=== PATIENT | female | born 1985 | race Caucasian/White ===

== ENCOUNTER 2020-04-01 18:58 | Emergency (ER) | payer SELFPAY ==
[2020-04-01 22:35] LABS: Urine Blood NEGATIVE (NEG); Urine Glucose NEGATIVE (NEG); Urine Protein NEGATIVE (NEG); Urine pH 6.5 (5.0-7.0)
[2020-04-01 22:39] LABS: Absolute Lymphocytes (CBC) 2.3 K/uL (0.7-4.9); Basophils % 0.6 % (0-1.3); Hematocrit 39.1 % (36.0-45.0); Lymphocytes % 25.9 % (15.3-44.8); MPV 8.4 fL (7.6-11.3); RBC Red Blood Cell Count 4.45 M/uL (3.86-4.86)
[2020-04-02 00:56] LABS: Albumin 4.2 g/dL (3.4-5.0); Bilirubin Direct 0.1 mg/dL (0-0.2); Bilirubin Total 0.6 mg/dL (0.2-1.0); Potassium 3.6 mmol/L (3.5-5.1); Protein, Total 8.1 g/dL (6.4-8.2)
--- NOTE | 2020-04-02 01:15 | ER ---
Nurse's Notes [facility] Name: Darcy Oreilly Age: 34 yrs Sex: Female : 1985 Arrival Date: 04/01/2020 Time: 19:01 Bed 7 Private MD: Diagnosis: Other abdominal pain Presentation: 04/01 19:24 Chief complaint: Patient states: Epigastic back pain that radiates to the right side aj1 that started yesterday. Denies N/V/D. Denies fever. Describes the pain as pressure. Coronavirus screen: Client denies travel out of the [place] in the last 14 days. At this time, the client does not indicate any symptoms associated with coronavirus-19. Ebola Screen: Patient denies travel to an Ebola-affected area in the 21 days before illness onset. Initial Sepsis Screen: Does the patient meet any 2 criteria? No. Patient's initial sepsis screen is negative. Does the patient have a suspected source of infection? Yes: Acute abdominal pain. Risk Assessment: Do you want to hurt yourself or someone else? Patient reports no desire to harm self or others. Onset of symptoms was March 31, 2020. 19:24 Method Of Arrival: Ambulatory aj1 19:24 Acuity: RADHA 3 aj1 Triage Assessment: 19:31 General: Appears in no apparent distress. uncomfortable, Behavior is calm, cooperative, aj1 appropriate for age. Pain: Complains of pain in back and epigastric area Pain does not radiate. Pain radiates to anterior aspect of right lateral abdomen Pain currently is 3 out of 10 on a pain scale. Quality of pain is described as pressure. Neuro: Level of Consciousness is awake, alert, obeys commands, Oriented to person, place, time, situation. Cardiovascular: Patient's skin is warm and dry. Respiratory: Airway is patent Respiratory effort is even, unlabored, Respiratory pattern is regular, symmetrical. GI: Reports lower abdominal pain, Patient currently denies diarrhea, nausea, vomiting. Derm: Skin is pink, warm \T\ dry. normal. 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 - Social history:: Smoking status: Patient/guardian denies using tobacco. Screenin:36 Abuse screen: Denies threats or abuse. Denies injuries from another. Nutritional rv screening: No deficits noted. Tuberculosis screening: No symptoms or risk factors identified. Fall Risk None identified. Assessment: 22:35 General: Appears comfortable, Behavior is calm, cooperative. Pain: Complains of pain in rv right upper quadrant. Neuro: Level of Consciousness is awake, alert, obeys commands, Oriented to person, place, time, situation. Cardiovascular: Patient's skin is warm and dry. Respiratory: Airway is patent Respiratory effort is even, unlabored. Derm: Skin is intact. 22:36 GI: Bowel sounds present X 4 quads. Abd is soft and non tender X 4 quads. rv 04/02 00:03 Reassessment: Patient and/or family updated on plan of care and expected duration. Pain ea level reassessed. Patient is alert, oriented x 3, equal unlabored respirations, skin warm/dry/pink. 01:33 Reassessment: Patient and/or family updated on plan of care and expected duration. Pain ea level reassessed. Patient is alert, oriented x 3, equal unlabored respirations, skin warm/dry/pink. Discharge instruction given to patient, verbalized the understanding of instruction. Pt left ED ambulatory tolerating well. Vital Signs: 04/01 19:24 BP 134 / 90; Pulse 83; Resp 18; Temp 98.1; Pulse Ox 100% on R/A; Weight 104.33 kg (R); aj1 Height 5 ft. 8 in. (172.72 cm) (R); Pain 3/10; 23:37 BP 97 / 61; Pulse 70; Resp 18; Pulse Ox 100% ; ea 04/02 00:04 BP 103 / 66; Pulse 73; Resp 18; Pulse Ox 97% ; ea 04/01 19:24 Body Mass Index 34.97 (104.33 kg, 172.72 cm) aj1 ED Course: 04/01 19:01 Patient arrived in ED. ag5 19:30 Triage completed. aj1 19:31 Arm band placed on Patient placed in waiting room, Patient notified of wait time. aj1 22:15 Blake Varela PA is PHCP. [facility] 22:15 Emeka Linares MD is Attending Physician. [facility] 22:20 Sandeep Jamison, RN is Primary Nurse. rv 22:35 Initial lab(s) drawn, by me, sent to lab. Inserted saline lock: 20 gauge in right rv antecubital area, using aseptic technique. Blood collected. 22:36 Patient has correct armband on for positive identification. Pulse ox on. NIBP on. rv 22:36 No provider procedures requiring assistance completed. rv 04/02 01:14 Federico Stephenson MD is Referral Physician. jmm 01:31 IV discontinued, intact, bleeding controlled, No redness/swelling at site. Pressure ea dressing applied. 12:22 CT Abd/Pelvis - IV Contrast Only In Process Unspecified. EDMS Administered Medications: No medications were administered Outcome: 01:15 Discharge ordered by MD. jmm 01:31 Condition: stable ea 01:31 Discharge instructions given to patient, Instructed on discharge instructions, follow up and referral plans. medication usage, Demonstrated understanding of instructions, follow-up care, medications, Prescriptions given X 2. 01:33 Discharged to home ambulatory. ea 01:34 Patient left the ED. ea Signatures: Dispatcher [employer] EDMS Kenzie Kunz, RN RN ajBlake Muhammad PA PA jmm Antunez, Elena, Sandeep Vazquez RN, ea, RN Rochelle Berman ag5
--- NOTE | 2020-04-02 01:15 | EDPHYS ---
Physician Documentation [facility] Name: Darcy Oreilly Age: 34 yrs Sex: Female : 1985 Arrival Date: 04/01/2020 Time: 19:01 Bed 7 Private MD: ED Physician Emeka Linares HPI: 04/01 22:27 This 34 yrs old Female presents to ER via Ambulatory with complaints of jmm Abdominal Pain, Rib Pain. 22:27 The patient presents with abdominal pain. Onset: The symptoms/episode began/occurred jmm gradually, today. The symptoms radiate to Associated signs and symptoms: Pertinent negatives: nausea and vomiting, diarrhea, dysuria. The symptoms are described as achy. This is a 34 year old female with no chronic medical conditions that presents to the ED with complaints of right sided abdominal pain. Denies fever. vomiting. Pain is not exacerbated after eating. . 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 - Social history:: Smoking status: Patient/guardian denies using tobacco. ROS: 22:27 Constitutional: Negative for fever, chills, and weight loss, Cardiovascular: Negative jmm for chest pain, palpitations, and edema, Respiratory: Negative for shortness of breath, cough, wheezing, and pleuritic chest pain. 22:27 Abdomen/GI: Positive for abdominal pain. 22:27 All other systems are negative. Exam: 22:27 Constitutional: This is a well developed, well nourished patient who is awake, alert, jmm and in no acute distress. Head/Face: atraumatic. Eyes: EOMI, no conjunctival erythema appreciated ENT: Moist Mucus Membranes Neck: Trachea midline, Supple Chest/axilla: Normal chest wall appearance and motion. Cardiovascular: Regular rate and rhythm. No edema appreciated Respiratory: Normal respirations, no respiratory distress appreciated 22:27 Back: Normal ROM Skin: General appearance color normal MS/ Extremity: Moves all extremities, no obvious deformities appreciated, no edema noted to the lower extremities Neuro: Awake and alert, normal gait Psych: Behavior is normal, Mood is normal, Patient is cooperative and pleasant 22:27 Abdomen/GI: Inspection: abdomen appears normal, Bowel sounds: normal, Palpation: soft, mild abdominal tenderness, in the right upper quadrant. Vital Signs: 19:24 BP 134 / 90; Pulse 83; Resp 18; Temp 98.1; Pulse Ox 100% on R/A; Weight 104.33 kg (R); aj1 Height 5 ft. 8 in. (172.72 cm) (R); Pain 3/10; 23:37 BP 97 / 61; Pulse 70; Resp 18; Pulse Ox 100% ; ea 04/02 00:04 BP 103 / 66; Pulse 73; Resp 18; Pulse Ox 97% ; ea 04/01 19:24 Body Mass Index 34.97 (104.33 kg, 172.72 cm) aj1 MDM: 04/01 22:22 Patient medically screened. [facility] 04/02 01:12 Data reviewed: vital signs, nurses notes. Counseling: I had a detailed discussion with robert the patient and/or guardian regarding: the historical points, exam findings, and any diagnostic results supporting the discharge/admit diagnosis, lab results, radiology results, the need for outpatient follow up, to return to the emergency department if symptoms worsen or persist or if there are any questions or concerns that arise at home. ED course: Patient is alert and non toxic in appearance in the ED. Patient is advised to follow up with GI for further evaluation. patient is otherwise given strict return precautions. Patient understood and agrees with the plan of care. . 04/01 22:27 Order name: Basic Metabolic Panel; Complete Time: 00:57 [facility] 04/01 22:27 Order name: CBC with Diff; Complete Time: 23:10 [facility] 04/01 22:27 Order name: Hepatic Function; Complete Time: 00:57 [facility] 04/01 22:27 Order name: Lipase; Complete Time: 00:57 [facility] 04/01 22:29 Order name: Urine --Ancillary (enter results); Complete Time: 23:10 [facility] 04/01 22:29 Order name: Urine Dipstick--Ancillary (enter results); Complete Time: 23:10 [facility]3 04/01 22:27 Order name: IV Saline Lock; Complete Time: 22:35 [facility] 04/01 22:27 Order name: Labs collected and sent; Complete Time: 22:35 [facility] 04/01 22:27 Order name: US Abdomen Limited [facility] 04/01 22:27 Order name: CT Abd/Pelvis - IV Contrast Only [facility] Administered Medications: No medications were administered Disposition: 07:47 Co-signature as Attending Physician, Emeka Linares MD I agree with the assessment and em plan of care. Disposition: 04/02/20 01:15 Discharged to Home. Impression: Other abdominal pain. - Condition is Stable. - Discharge Instructions: Abdominal Pain, Adult. - Prescriptions for Bentyl 20 mg Oral Tablet - take 2 tablet by ORAL route every 6 hours As needed; 40 tablet. Pepcid 20 mg Oral Tablet - take 1 tablet by ORAL route once daily; 20 tablet. - Medication Reconciliation Form, Thank You Letter, Antibiotic Education, Prescription Opioid Use form. - Follow up: Federico Stephenson MD; When: 2 - 3 days; Reason: Recheck today's complaints, Continuance of care, Re-evaluation by your physician. Signatures: Dispatcher [employer] EDKenzie Ashford, RN RN aj1 Emeka Linares MD MD cha Mickail, Joel, PA PA Danya Ng RN RN ea Corrections: (The following items were deleted from the chart) 01:34 01:15 04/02/2020 01:15 Discharged to Home. Impression: Other abdominal pain. Condition ea is Stable. Forms are Medication Reconciliation Form, Thank You Letter, Antibiotic Education, Prescription Opioid Use. Follow up: Federico Stephenson; When: 2 - 3 days; Reason: Recheck today's complaints, Continuance of care, Re-evaluation by your physician. robert
--- NOTE | 2020-04-02 08:03 | RAD REPORT ---
EXAM DESCRIPTION: US - Abdomen Exam Limited - 04/02/2020 6:42 am CLINICAL HISTORY: abdominal pain Preliminary findings provided the time of the study. COMPARISON: No comparisons FINDINGS: No gallstones, sludge or other abnormalities within the gallbladder lumen. There is no wal l thickening or pericholecystic fluid. No common duct stone or biliary tree dilatation identified. IMPRESSION: Normal gallbladder and biliary tree ultrasound.
--- NOTE | 2020-04-04 16:42 | RAD REPORT ---
EXAM DESCRIPTION: CT - Abdomen Pelvis W Contrast - 04/02/2020 6:42 am CLINICAL HISTORY: 34-year-old female with right-sided abdominal pain. COMPARISON: None. TECHNIQUE: CT of the abdomen and pelvis was performed following intravenous administration of contra st. Oral contrast was not administered. Multiplanar reformatted images were provided. This exam was p erformed according to our departmental dose optimization program which includes use of automated expo sure control, adjustment of the mA and/or kV according to patient size and/or use of iterative recons truction technique. FINDINGS: Chest: Evaluation through the lung bases reveals no focal opacity, pleural effusion or pne umothorax. Heart size is within normal limits. No pericardial effusion. Abdomen and pelvis: A hypoattenuating structure is identified at the level of the LEFT lobe liver wit h peripheral discontinuous enhancement and slight filling in of peripheral enhancement on delayed pha se imaging overall measuring 4.2 cm, (series 401, image 14 and series 501), image 13 suggestive of a hemangioma. The liver, gallbladder, pancreas, spleen, bilateral kidneys and bilateral adrenal glands are within n ormal limits. Focus of subcortical hypoattenuation within the LEFT kidney subcentimeter in size suggestive of simpl e renal cyst, however too small to accurately characterize. The vessels are patent and normal in caliber. No abdominopelvic lymph nodes are noted to be pathologically enlarged by CT measurement criteria. The bowel is within normal limits without abnormal bowel wall thickness or bowel dilation. No free air. No free abdominopelvic fluid collections. The appendix is within normal limits. The uterus and adnexa are within normal limits of a contrast-enhanced CT examination. Cystic type str ucture on the LEFT suggestive of a dominant follicle measuring 19 mm, (series 501, image 70). The osseous structures are within normal limits. IMPRESSION: 1. No specific acute intra-abdominal findings are noted to suggest etiology of the patie nt's abdominal pain. 2. 4.2 cm suspected LEFT liver lobe hemangioma as detailed above. 3. 1.9 cm benign appearing ovarian cyst. No follow-up imaging is recommended. Reference: J Am Rosina Radiol 2013;10:[id number] Electronically signed by: Julianna Saucedo MD 04/02/2020 12:44 AM COMMERCIAL GREEN RETROFIT ARCHITECT Due to temporary technical issues with the PACS/Fluency reporting system, reports are being signed by the in house radiologists without review as a courtesy to insure prompt reporting. The interpreting radiologist is fully responsible for the content of the report.
== END 2020-04-02 01:34 | disposition home or self-care (01) ==
LOC: ER 18:58
DX: R10.9 Unspecified abdominal pain (principal)
CPT/HCPCS: 36415; 74177; 76705; 80048; 80076; 81003; 81025; 83690; 85025; 99284; Q9967